=== PATIENT | male | born 1970 | race Caucasian/White ===

== ENCOUNTER 2020-01-29 13:48 | Emergency (ER) | payer BC ==
[~2020-01-29] VITALS: Ht 175.3 cm; Wt 130.6 kg
[2020-01-29] MEDS ORDERED: NACL 0.9% 1,000 ML IV ONE (14:18)
[2020-01-29] MEDS ORDERED: KETOROLAC TROMETHAMINE 30 MG VIAL IVP ONE (14:30)
[2020-01-29 14:54] LABS: BILIRUBIN,URINE NEGATIVE (NEGATIVE); CLARITY/URINE CLEAR (CLEAR); COLOR,URINE YELLOW (YELLOW); GLUCOSE,URINE 1+ (NEGATIVE); KETONES,URINE 3+ (NEGATIVE); LEUKOCYTE ESTERASE ,URINE NEGATIVE (NEGATIVE); NITRITE, URINE NEGATIVE (NEGATIVE); PH,URINE 5.5 (5.0-8.0); PROTEIN URINE TRACE (NEGATIVE)
[2020-01-29 14:58] LABS: BASOPHILS # (AUTO) 0.1 K/uL (0.0-0.2); BASOPHILS % (AUTO) 0.9 % (0.0-2.0); EOSINOPHILS # (AUTO) 0.3 K/uL (0.0-0.4); EOSINOPHILS % (AUTO) 2.8 % (0.0-4.0); HEMATOCRIT 41.1 % (36-54); HEMOGLOBIN 13.7 g/dL (14.0-18.0); LYMPHOCYTES # (AUTO) 1.6 K/uL (1.0-5.5); LYMPHOCYTES % (AUTO) 13.5 % (20.5-51.5); MEAN CORPUSCULAR HEMOGLOBIN 25 pg (27-31); MEAN CORPUSCULAR HGB CONC 33 % (32-36); MEAN CORPUSCULAR VOLUME 75 fL (79.0-98.0); MONOCYTES # (AUTO) 1.1 K/uL (0.0-1.0); MONOCYTES % (AUTO) 9.2 % (1.7-9.3); NEUTROPHILS # (AUTO) 8.5 K/uL (1.8-7.7); NEUTROPHILS % (AUTO) 73.6 % (40.0-70.0); PLATELET COUNT (AUTO) 261 K/uL (130-430); RED BLOOD CELL COUNT(AUTO) 5.48 MIL/uL (4.2-6.2); RED CELL DISTRIBUTION WIDTH 13.4 % (9.0-15.0); WHITE BLOOD COUNT (AUTO) 11.5 K/uL (4.8-10.8)
[2020-01-29 14:59] LABS: CALCIUM 9.1 mg/dL (8.4-11.0); CREATININE 0.79 mg/dL (0.55-1.30)
[2020-01-29 15:02] LABS: BLOOD, URINE TRACE (NEGATIVE)
[2020-01-29 15:04] LABS: RBC,URINE 0-3 /HPF (0-3)
[2020-01-29 15:05] LABS: BACTERIA,URINE FEW /HPF (None Seen); MUCUS,URINE None Seen /LPF (None Seen); WBC,URINE NONE SEEN /HPF (0-3)
[2020-01-29 15:05] LABS: ALBUMIN 2.6 g/dL (3.4-4.8)
[2020-01-29] MEDS ORDERED: POTASSIUM CHLORIDE 20 MEQ TAB.PRT.SR PO ONE (15:30)
[2020-01-29] MEDS ORDERED: cefTRIAXone 1 GM in D5W 50 ML IV ONE (15:45)
[2020-01-29] MEDS ORDERED: cefTRIAXone 1 GM VIAL ONE (16:17)
[2020-01-29 16:32] VITALS: BP_SYST 120
== END 2020-01-29 16:33 | disposition home or self-care (01) ==
LOC: SED 13:48
DX: J18.9 Pneumonia, unspecified organism (principal); R10.9 Unspecified abdominal pain; E87.6 Hypokalemia; E11.29 Type 2 diabetes mellitus with other diabetic kidney complication; N28.9 Disorder of kidney and ureter, unspecified; F17.290 Nicotine dependence, other tobacco product, uncomplicated
CPT/HCPCS: 36415; 36600; 74176; 80053; 81000; 82803; 85025; 96361; 96365; 96375; 99284; J0696; J1885; J7030

== ENCOUNTER 2020-03-25 20:08 | Inpatient (IN) | payer BC, SELFPAY ==
[~2020-03-25] VITALS: Ht 167.6 cm; Wt 116.6 kg
[2020-03-25 20:08] VITALS: BP_SYST 153
--- NOTE | 2020-03-25 20:08 | NUR ---
Patient to ER bed 02 to gown for evaluation. Side rails up. Report given to GERMAN Alcantar
--- NOTE | 2020-03-25 20:09 | NUR ---
ER at bedside examining patient.
--- NOTE | 2020-03-25 20:15 | NUR ---
Pt presents to the ER c/o SOB, chest pain w/ cough x saturday. Pt reports pain has increased and similar to Pneumonia symptoms from january. Pt states feeling like heart is raising. Pt presents w/ tachycardia in the ER 105-115 hr. Denies sick contacts.
--- NOTE | 2020-03-25 20:27 | NUR ---
accucheck - blood sugar 370. MD aware.
--- NOTE | 2020-03-25 20:40 | NUR ---
RT Elian at bedside. Pt to receive breathing tx.
[2020-03-25] MEDS ORDERED: IPRATROPIUM/ALBUTEROL SULFATE 3 ML AMPUL.NEB (DUONEB) INH ONE (20:45)
[2020-03-25] MEDS ORDERED: KETOROLAC TROMETHAMINE 30 MG VIAL IVP ONE (20:45)
--- NOTE | 2020-03-25 20:45 | NUR ---
# 20 gauge angiocath placed to FA. Use of asceptic technique. Opsite placed over site. Blood return noted. Blood for lab drawn from site. Flushed with 10 cc of normal saline. No evidence of infiltration noted. Patient tolerated well.
[2020-03-25 21:35] LABS: BASOPHILS % (AUTO) 0.4 % (0.0-2.0); EOSINOPHILS % (AUTO) 0.1 % (0.0-4.0); HEMATOCRIT 46.2 % (36-54); HEMOGLOBIN 15.2 g/dL (14.0-18.0); LYMPHOCYTES # (AUTO) 1.1 K/uL (1.0-5.5); LYMPHOCYTES % (AUTO) 11.6 % (20.5-51.5); MEAN CORPUSCULAR HEMOGLOBIN 25 pg (27-31); MEAN CORPUSCULAR HGB CONC 33 % (32-36); MEAN CORPUSCULAR VOLUME 75 fL (79.0-98.0); MONOCYTES # (AUTO) 0.7 K/uL (0.0-1.0); MONOCYTES % (AUTO) 7.4 % (1.7-9.3); NEUTROPHILS # (AUTO) 7.6 K/uL (1.8-7.7); NEUTROPHILS % (AUTO) 80.5 % (40.0-70.0); PLATELET COUNT (AUTO) 237 K/uL (130-430); RED BLOOD CELL COUNT(AUTO) 6.19 MIL/uL (4.2-6.2); RED CELL DISTRIBUTION WIDTH 14.9 % (9.0-15.0); WHITE BLOOD COUNT (AUTO) 9.4 K/uL (4.8-10.8)
[2020-03-25 21:39] LABS: ANION GAP 23 (5-15); CALCIUM 9.4 mg/dL (8.4-11.0); CHLORIDE 91 mmol/L (98-107); CREATININE 0.96 mg/dL (0.55-1.30); GLUCOSE 358 mg/dL (70-99); POTASSIUM 3.7 mmol/L (3.5-5.1); SODIUM SERUM 129 mmol/L (136-145); UREA NITROGEN, BLOOD 13 mg/dL (8-21)
--- NOTE | 2020-03-25 21:45 | NUR ---
CRITICAL RESULT EL GARCIA Positive NOTIFIED
[2020-03-25 21:48] LABS: ALANINE AMINOTRANSFERASE 46 U/L (12-78); ALBUMIN 3.4 g/dL (3.4-4.8); ASPARTATE AMINOTRANSFERASE 33 U/L (10-37); TOTAL BILIRUBIN 0.8 mg/dL (0.0-1.0)
[2020-03-25 21:49] LABS: GFR AFRICAN AMERICAN 107 mL/min (>90)
[2020-03-25] MEDS ORDERED: IOHEXOL 350 mgI/mL, 150 ML INFUS..BTL IV ONE (22:24)
--- NOTE | 2020-03-25 22:30 | NUR ---
Pt taken to CT scan via wheelchair w/ Gary.
[2020-03-25] MEDS ORDERED: cefTRIAXone 1 GM IVPB PREMIX 50 ML IV ONE (23:15)
[2020-03-25] MEDS ORDERED: AZITHROMYCIN 500 MG in NS 250 ML IV ONE (23:15)
[2020-03-25] MEDS ORDERED: DEXAMETHASONE SOD PHOSPHATE 4 MG/ML VIAL IVP ONE (23:15)
--- NOTE | 2020-03-25 23:27 | NUR ---
Patient will be admitted to care of Dr. Rodriguez. Admitted to Telemetry Covid unit. Belongings list completed. Complete and up to date summary report printed. SBAR report to be given at bedside with opportunity for questions.
[2020-03-25] MEDS ORDERED: SODIUM BICARBONATE 8.4% JECT 50 MEQ/50 ML SYRINGE IVP ONE (23:30)
[2020-03-25] MEDS ORDERED: INSULIN REGULAR, HUMAN 10 UNITS/0.1 ML INJ IVP ONE (23:30)
[2020-03-25] MEDS ORDERED: NACL 0.9% 2,000 ML IV ONE (23:30)
[2020-03-25] MEDS ORDERED: ACETAMINOPHEN 325 MG TABLET PO PRN (23:45)
[2020-03-25] MEDS: NACL 0.9% 1,000 ML IV SCH (23:45)
[2020-03-25] MEDS ORDERED: MORPHINE 2 MG/ML INJ. SYRINGE IVP PRN (23:45)
[2020-03-25] MEDS: AZITHROMYCIN 500 MG in NS 250 ML IV SCH (23:45)
[2020-03-25] MEDS ORDERED: NALOXONE HCL 0.4 MG/ML AMP (NARCAN) IVP PRN (23:45)
[2020-03-25] MEDS ORDERED: AZITHROMYCIN 500 MG/VIAL (ZITHROMAX) IV ONE (23:58)
[2020-03-26] VITALS (24 sets, daily range): BP systolic 109–134
[2020-03-26] MEDS ORDERED: *LOVENOX 1MG/KG Q12H/PHARMACY XX ONE
[2020-03-26] MEDS: DEXAMETHASONE SOD PHOSPHATE 10 MG/ML VIAL IVP SCH
[2020-03-26] MEDS ORDERED: INSULIN REGULAR, HUMAN 100 UNITS in NS 99 ML IV PRN ×2
--- NOTE | 2020-03-26 00:47 | NUR ---
Admitted to ICU: Rc'vd report using SBAR format from ED RN, all cares assumed.
--- NOTE | 2020-03-26 01:42 | NUR ---
[facility] [employer] DR. MILLIGAN [phone] SPOKE TO ARMAAN
[2020-03-26] MEDS ORDERED: DEXTROSE 50% JECT 50 ML DISP.SYRIN IVP PRN ×2 (02:00)
--- NOTE | 2020-03-26 02:15 | NUR ---
: DR. MILLIGAN called unit, spoke with charge and orders clarified.
[2020-03-26] MEDS ORDERED: cefTRIAXone 1 GM VIAL ONE (02:21)
[2020-03-26] MEDS ORDERED: DEXAMETHASONE SOD PHOSPHATE 10 MG/ML VIAL ONE (02:24)
[2020-03-26] MEDS ORDERED: ENOXAPARIN SODIUM 120 MG/0.8 ML SYRINGE ONE (02:26)
--- NOTE | 2020-03-26 02:30 | NUR ---
BS: BS 317, Insulin Drip started at 3 units per hour per protocol order verified with second nurse.
[2020-03-26] MEDS ORDERED: AZITHROMYCIN 500 MG/VIAL (ZITHROMAX) IV ONE (02:42)
--- NOTE | 2020-03-26 02:45 | NUR ---
IV: 20G placed into Right AC, patient tolerated well, denies pain and or discomfort.
[2020-03-26] MEDS: INSULIN REGULAR, HUMAN 100 UNITS in NS 99 ML IV PRN ×4 (02:48→22:20)
--- NOTE | 2020-03-26 03:17 | NUR ---
Insulin: Insulin order clarified with MD, all orders placed into EMAR by Charge Nurse. patient educated, patient verbalized understanding.
--- NOTE | 2020-03-26 03:19 | NUR ---
Education: Provided verbal education on medications being admisntered to patient, patient verbalized understanding at this time and denies any questions and or concerns. All safety checks in place, bed in lowest locked position and call light in reach.
--- NOTE | 2020-03-26 03:30 | NUR ---
Consults; Consults rc'vd for Dr. Sanchez, and Dr. Callejas. Will call exchange and notify, charge aware.
--- NOTE | 2020-03-26 03:54 | NUR ---
BS: BS 321, patient remains on 3 units/hr at this time. Patient in bed with eyes closed in no apparent distress.
--- NOTE | 2020-03-26 05:01 | NUR ---
Nsg Rounds: Patient in bed with eyes open, friendly and cooperative to speak with. Denies pain and or discomfort, all safety measures in place and call light in reach. Patient demonstrated proper use of call light. patient requested snack, [place] sandwich given, fluids offered. Monitoring at this time.
--- NOTE | 2020-03-26 05:25 | NUR ---
Labs: Labs being drawn at bedside by Exhaust Machine Operator, patient tolerated well.
--- NOTE | 2020-03-26 06:10 | NUR ---
Nsg Rounds: Patient asleep, resting comfortably no acute distress noted. All safety checks in place, call light in reach, bed in lowest position.
--- NOTE | 2020-03-26 06:16 | NUR ---
Belongings: 1 pair of blk sandals, 1 pair blk shorts, 1 blk shirt, 1 pair boxer briefs blk, 1 set of car keys, ID card, Ins Card, 2 credit debit cards. All items at bedside with patient.
[2020-03-26 06:23] LABS: BASOPHILS % (AUTO) 0.2 % (0.0-2.0); HEMOGLOBIN 13.8 g/dL (14.0-18.0); LYMPHOCYTES # (AUTO) 0.5 K/uL (1.0-5.5); LYMPHOCYTES % (AUTO) 7.1 % (20.5-51.5); MEAN CORPUSCULAR HEMOGLOBIN 25 pg (27-31); MEAN CORPUSCULAR HGB CONC 34 % (32-36); MEAN CORPUSCULAR VOLUME 74 fL (79.0-98.0); MONOCYTES # (AUTO) 0.3 K/uL (0.0-1.0); MONOCYTES % (AUTO) 4.4 % (1.7-9.3); NEUTROPHILS # (AUTO) 6.8 K/uL (1.8-7.7); NEUTROPHILS % (AUTO) 88.3 % (40.0-70.0); PLATELET COUNT (AUTO) 216 K/uL (130-430); RED BLOOD CELL COUNT(AUTO) 5.53 MIL/uL (4.2-6.2); WHITE BLOOD COUNT (AUTO) 7.7 K/uL (4.8-10.8)
--- NOTE | 2020-03-26 06:45 | NUR ---
Intubation: Patient stated, "I want to be intubated if I need it so I can breathe", patient educated on intubation and respiratory compromise. Patient verbalized understanding, information given to Charge nurse.
--- NOTE | 2020-03-26 06:47 | NUR ---
Closing Note: Report given to AM nurse using SBAR format. All safety checks remain in place, patient stable in no acute distress and or discomfort. Bed in lowest locked position with call light in reach.
[2020-03-26 07:06] LABS: ALBUMIN 2.8 g/dL (3.4-4.8); CALCIUM 8.7 mg/dL (8.4-11.0); CREATININE 0.73 mg/dL (0.55-1.30); POTASSIUM 3.5 mmol/L (3.5-5.1); TOTAL BILIRUBIN 0.5 mg/dL (0.0-1.0)
--- NOTE | 2020-03-26 07:20 | NUR ---
Opening Note Patient report received via SBAR from endorsing RN
[2020-03-26] MEDS: NACL 0.9% 1,000 ML IV SCH (08:29)
--- NOTE | 2020-03-26 08:30 | NUR ---
Nursing Note Patient provided education about self proning, patient stated, "I can't lay on my stomach, its to hard for me to breathe." Patient educated about Incentive Spirometer use, patient verbalized understanding and demonstrated use.
--- NOTE | 2020-03-26 08:30 | NUR ---
Witnessed Insulin drip infusing at 1 unit/hr on the pump.
--- NOTE | 2020-03-26 09:59 | NUR ---
Nutrition Update Milton Scale 16 noted. Pt admitted for COVID, pneumonia. Diet: [facility] BMI: 41.5 kg/m2 RD to follow per nutrition care standards.
--- NOTE | 2020-03-26 10:00 | NUR ---
Witnessed Insulin drip infusing at 4 unit/hr on the pump.
--- NOTE | 2020-03-26 10:05 | NUR ---
ROUND Dr. Callejas in to see patient, new orders entered
[2020-03-26] MEDS ORDERED: ASCORBIC ACID 500 MG TABLET PO ONE (10:15)
[2020-03-26] MEDS ORDERED: CHOLECALCIFEROL (VITAMIN D3) 2,000 UNIT TABLET PO ONE (10:15)
[2020-03-26] MEDS: ENOXAPARIN SODIUM 120 MG/0.8 ML SYRINGE SUBCUT SCH ×2 (11:50→20:44)
--- NOTE | 2020-03-26 11:55 | NUR ---
ROUND Dr. Boyd in to see patient, new orders entered
[2020-03-26] MEDS ORDERED: K PHOS 30 MM in NS 250 ML IV ONE (12:00)
--- NOTE | 2020-03-26 12:00 | NUR ---
Witnessed Insulin drip infusing at 2 unit/hr on the pump.
--- NOTE | 2020-03-26 14:20 | NUR ---
Dietitian Recommendations * Recommend [facility], 100 gm protein diet LP, RD Please refer to Nutrition Assessment for details. Addendum: 03/26/20 at [address] Amended: Links added.
--- NOTE | 2020-03-26 15:00 | NUR ---
Nursing Note Patient given CHG bath, patient repositioned and encouraged to use Incentive Spirometer
--- NOTE | 2020-03-26 16:08 | NUR ---
Nursing Note Patient's family brought cellphone slat basket maker machine and battery pack. Placed at patient's bedside Addendum: 03/26/20 at 1610 by Jairo Gannon RN Amended: Links added.
--- NOTE | 2020-03-26 18:47 | NUR ---
MD CALL Dr. Sanchez informed about patient condition, new orders entered
--- NOTE | 2020-03-26 19:17 | NUR ---
Closing Note Patient report given to nightshift RN via SBAR
--- NOTE | 2020-03-26 20:00 | NUR ---
INITIAL NOTES PATIENT VITAL IS STABLE AND LAYING IN BED. NO S/S OF RESPIRATORY DISTRESS NOTED. CALL LIGHT IN REACH. PATIENT SUCCESSFULLY DEMONSTRATES USAGE OF CALL LIGHT. PATIENT IS ON 2L NC. PLAN OF CARE IS DISCUSSED WITH PATIENT. FALL, SAFETY, ASPIRATION, COVID, AND RESPIRATORY PRECAUTIONS WILL BE IN PLACE THROUGHOUT THE SHIFT. PLAN OF CARE IS DISCUSSED WITH PATIENT. BED IS LOCK AND AT THE LOWEST POSITION. PATIENT IS ON INSULIN @2 ML/HR. INSULIN PROTOCOL WILL BE IN PLACE THROUGHOUT THE SHIFT.
[2020-03-26 20:40] LABS: ALBUMIN 2.6 g/dL (3.4-4.8); CALCIUM 8.9 mg/dL (8.4-11.0); CREATININE 0.76 mg/dL (0.55-1.30); PHOSPHORUS 2.8 mg/dL (2.7-4.5); POTASSIUM 3.6 mmol/L (3.5-5.1); TOTAL BILIRUBIN 0.5 mg/dL (0.0-1.0)
--- NOTE | 2020-03-26 21:15 | NUR ---
STARTED FFP PATIENT IS TOLERATING WELL. NO S/S OF RESPIRATORY DISTRESS NOTED. CALL LIGHT IN REACH.
--- NOTE | 2020-03-26 22:20 | NUR ---
Norm Dawkins RN titrate insulin drip to 1 unit/hr on the pump.
[2020-03-27] VITALS (23 sets, daily range): BP systolic 108–136
[2020-03-27] MEDS: DEXAMETHASONE SOD PHOSPHATE 10 MG/ML VIAL IVP SCH (00:46)
[2020-03-27] MEDS: AZITHROMYCIN 500 MG in NS 250 ML IV SCH (00:46)
--- NOTE | 2020-03-27 01:18 | NUR ---
daylight saving/glucose check glucose check taken now due to day light savings. will continue to take q2 hrs from now.
[2020-03-27 02:15] LABS: BASOPHILS % (AUTO) 0.2 % (0.0-2.0); HEMATOCRIT 39.6 % (36-54); LYMPHOCYTES # (AUTO) 0.6 K/uL (1.0-5.5); LYMPHOCYTES % (AUTO) 6.8 % (20.5-51.5); MEAN CORPUSCULAR HEMOGLOBIN 24 pg (27-31); MEAN CORPUSCULAR HGB CONC 33 % (32-36); MEAN CORPUSCULAR VOLUME 74 fL (79.0-98.0); MONOCYTES # (AUTO) 0.6 K/uL (0.0-1.0); MONOCYTES % (AUTO) 7.5 % (1.7-9.3); NEUTROPHILS # (AUTO) 7.3 K/uL (1.8-7.7); NEUTROPHILS % (AUTO) 85.5 % (40.0-70.0); PLATELET COUNT (AUTO) 192 K/uL (130-430); RED BLOOD CELL COUNT(AUTO) 5.34 MIL/uL (4.2-6.2); RED CELL DISTRIBUTION WIDTH 15.2 % (9.0-15.0); WHITE BLOOD COUNT (AUTO) 8.6 K/uL (4.8-10.8)
[2020-03-27 02:34] LABS: ALBUMIN 2.5 g/dL (3.4-4.8); BILIRUBIN,DIRECT 0.2 mg/dL (0.0-0.3); CALCIUM 8.6 mg/dL (8.4-11.0); CREATININE 0.65 mg/dL (0.55-1.30); PHOSPHORUS 2.1 mg/dL (2.7-4.5); POTASSIUM 3.3 mmol/L (3.5-5.1); TOTAL BILIRUBIN 0.4 mg/dL (0.0-1.0)
--- NOTE | 2020-03-27 03:00 | NUR ---
Norm Dawkins RN titrate the insulin drip to 2 units/hr.
[2020-03-27] MEDS: INSULIN REGULAR, HUMAN 100 UNITS in NS 99 ML IV PRN ×10 (03:09→17:44)
[2020-03-27] MEDS: NACL 0.9% 1,000 ML IV SCH (05:31)
--- NOTE | 2020-03-27 07:20 | NUR ---
Witnessed: Witnessed RN titrate insulin to 3 units
--- NOTE | 2020-03-27 07:23 | NUR ---
CLOSING NOTES SBAR REPORT ENDORSED TO AM NURSE.
[2020-03-27] MEDS: CHOLECALCIFEROL (VITAMIN D3) 2,000 UNIT TABLET PO SCH (07:53)
[2020-03-27] MEDS: ASCORBIC ACID 500 MG TABLET PO SCH (07:53)
[2020-03-27] MEDS: ENOXAPARIN SODIUM 120 MG/0.8 ML SYRINGE SUBCUT SCH ×2 (07:54→21:17)
--- NOTE | 2020-03-27 09:16 | NUR ---
Blood glucose 324 - per insulin gtt protocol - continue on 3units.
[2020-03-27 09:23] LABS: ALBUMIN 2.5 g/dL (3.4-4.8); CALCIUM 8.8 mg/dL (8.4-11.0); CREATININE 0.65 mg/dL (0.55-1.30); PHOSPHORUS 2.4 mg/dL (2.7-4.5); POTASSIUM 3.1 mmol/L (3.5-5.1); TOTAL BILIRUBIN 0.4 mg/dL (0.0-1.0)
--- NOTE | 2020-03-27 09:58 | NUR ---
Dr. Boyd rounds per [place] to increase insulin drip to 5units then recheck blood glucose if still high blood glucose go up to 7units - if blood glucose less than 200 keep same insulin drip rate. Will follow up.
[2020-03-27] MEDS ORDERED: K PHOS 30 MM in NS 250 ML IV ONE (10:15)
--- NOTE | 2020-03-27 11:03 | NUR ---
Blood glucose 337 - - titrated drip to 5units per Dr. Boyd - due to blood glucose still being in the three hundred range. Addendum: 03/27/20 at 1803 by Ochoa Holguin RN Co-signed by Jey HENRIQUEZ
[2020-03-27 12:56] LABS: C-REACTIVE PROTEIN QUANT 4.4 mg/dL (0-0.5)
--- NOTE | 2020-03-27 13:00 | NUR ---
Blood glucose 270 - titrated drip to 2units at this time. Addendum: 03/27/20 at 1803 by Ochoa Holguin RN Co-signed by Jey HENRIQUEZ
--- NOTE | 2020-03-27 15:26 | NUR ---
Blood glucose 255 - insulin drip continues at 2units at this time.
--- NOTE | 2020-03-27 17:45 | NUR ---
Blood glucose 239 - titrated insulin drip to 1unit at this time. Addendum: 03/27/20 at 1804 by Ochoa Holguin RN Co-signed by Silke PORTER.
--- NOTE | 2020-03-27 18:36 | NUR ---
Closing note patient resting in bed, no signs of distress, on 3L nasal cannula, all needs met, will endorse report to NOC shift nurse, bed in lowest position, two side rails up, call light within reach, fall, isolation, aspiration precautions in place.
--- NOTE | 2020-03-27 19:15 | NUR ---
change of shift.pt.presents isolation status.droplet;covid19+.pt.presents o2 therapy;o2 therapy via nasal cannulae@ the rate;2-3l/min.o2-sat%=93%.pt.presents iv access x2;location;rt.antecubital/rt.wrist.iv fluids infusing rt.antecubital. insulin drip infusing;rt.wrist.insulin drip infusing@the rate;1ml/hr=1-unit/hr.blood glucose to be assessed q-2hrs.general status stable.respiratory status stable;unlabored.pt.capable to reposition self.call light/telephone w/in access of the pt.
--- NOTE | 2020-03-27 20:00 | NUR ---
pt.assessed.v/s assessed values w/in normal limits.o2-sat%=92%.repiratory status slight labored.no suctioning required.no c/o pain,nausea.insulin drip infusing.via lt.forearm iv access.i have assessed the blood glucose:297mg/dl.per insulin drip protocol.i have increased the insulin drip rate;2ml/hr=2units/hr.no c/o pain,nausea.i have apprised the pt.that snacks/beverages are available w/in the shift. no requests posited@this hour.general status stable. pt.capable to reposition self/ambulate.call light/telephone w/in access of the pt.
--- NOTE | 2020-03-27 20:22 | NUR ---
INSULIN DRIP I carly Medrano RN increase insulin drip to 2 units/HR.
--- NOTE | 2020-03-27 21:00 | NUR ---
2100pmedications administered.lovenox:120mg sq administered.no requests posited @this hour.02-sat%=93%.
[2020-03-27] MEDS ORDERED: ENOXAPARIN SODIUM 40 MG/0.4 ML SYRINGE ONE (21:30)
[2020-03-27] MEDS ORDERED: ENOXAPARIN SODIUM 100 MG/ML SYRINGE ONE (21:31)
--- NOTE | 2020-03-27 22:00 | NUR ---
pt.assessed.v/s assessed values w/in normal limits.o2-sat%=93%.i have re-iterated to the pt.that has ordered the pt to assume the prone position.pt.stated he will.i have assessed the blood glucose;value;254mg/dl.per insulin drip protocol.no change to the rate;maintain the rate current;2-ml/hr=2-units/hr.no c/o pain,nausea,no request posited@this hour.general status stable.respiratory status stable.pt.capable to reposition self.call light/telephone w/in access of the pt.
[2020-03-28] VITALS (24 sets, daily range): BP systolic 100–132
--- NOTE | 2020-03-28 | NUR ---
pt.assessed.v/s assessed values w/in normal limits.respiratory status stable:o2-sat%=93%.i re-iterated to the pt.that has ordered the pt.to assume the prone position.pt.stated he will.i have assessed the blood glucose;value;241mg/dl.per the insulin drip protocol no change in the rate of the insulin drip.i have administered the abx;zithromax;/rocephin.via peripheral line;located rt.antecubital.no c/o pain,nausea.pt.requested ice water.i have provided the ice water.general status stable.pt.capable to reposition self.call light/telephone w/in reach of the pt.
[2020-03-28] MEDS: AZITHROMYCIN 500 MG in NS 250 ML IV SCH ×2 (00:15→23:39)
[2020-03-28] MEDS: DEXAMETHASONE SOD PHOSPHATE 10 MG/ML VIAL IVP SCH ×2 (00:18→23:42)
[2020-03-28] MEDS: NACL 0.9% 1,000 ML IV SCH ×2 (01:14→22:31)
--- NOTE | 2020-03-28 02:00 | NUR ---
INSULIN DRIP I carly Medrano RN increase the insulin drip rate to 2units/HR.
--- NOTE | 2020-03-28 02:00 | NUR ---
pt.assessed.v/s assessed values note b/p values low status@this hour.i have assessed the blood glucose value;267mg/dl.i have increased the insulin drip rate;2ml/hr=2units/hr.o2-sat%=93%.iv access intact;patent iv influids infusing.general status stable.respiratory status stable.call light/telephone w/in access of the pt.
--- NOTE | 2020-03-28 04:00 | NUR ---
PT.ASSEsseD.V/S ASsEssed VALUES W/IN NORMaL LiMITS.o2-sat%=93%.respiratory status stable.i have assessed the blood glucose;value;288mg/dl.per insulin drip protocol no increase to the insulin drip rate.i have attended to the urinal;measured placed w/in access of the pt.no c/o pain,nausea.iv fluids infusing.general status stable.pt.capable to reposition self.call light/telephone w/in access of the pt.
--- NOTE | 2020-03-28 06:00 | NUR ---
INSULIN DRIP I carly Medrano RN increase the insulin drip rate to 4units/HR.
--- NOTE | 2020-03-28 06:00 | NUR ---
pt.assessed.v/s assessed values w/in normal limits.o2-sat%=96%respiratory status stable.i have attended to the urinal; measured placed w/in access of the pt.no c/o pain,nausea.no requests posited@this hour.pt.capable to reposition self. iv access intact patent iv fluids infusing.insulin drip infusing.i have assessed the blood glucose value;375mg/dl.per insulin protocol i have increased the insulin rate to 4ml/hr=4u/hr.call light/telephone w/in access of the pt.
[2020-03-28 06:06] LABS: BASOPHILS % (AUTO) 0.5 % (0.0-2.0); EOSINOPHILS % (AUTO) 0.2 % (0.0-4.0); HEMATOCRIT 38.6 % (36-54); HEMOGLOBIN 12.8 g/dL (14.0-18.0); LYMPHOCYTES # (AUTO) 0.6 K/uL (1.0-5.5); LYMPHOCYTES % (AUTO) 12.5 % (20.5-51.5); MEAN CORPUSCULAR HEMOGLOBIN 24 pg (27-31); MEAN CORPUSCULAR HGB CONC 33 % (32-36); MEAN CORPUSCULAR VOLUME 74 fL (79.0-98.0); MONOCYTES # (AUTO) 0.3 K/uL (0.0-1.0); NEUTROPHILS % (AUTO) 80.8 % (40.0-70.0); PLATELET COUNT (AUTO) 204 K/uL (130-430); RED BLOOD CELL COUNT(AUTO) 5.24 MIL/uL (4.2-6.2); WHITE BLOOD COUNT (AUTO) 4.9 K/uL (4.8-10.8)
[2020-03-28 06:40] LABS: ALBUMIN 2.3 g/dL (3.4-4.8); BILIRUBIN,DIRECT 0.2 mg/dL (0.0-0.3); CALCIUM 8.3 mg/dL (8.4-11.0); CREATININE 0.49 mg/dL (0.55-1.30); POTASSIUM 3.1 mmol/L (3.5-5.1); TOTAL BILIRUBIN 0.4 mg/dL (0.0-1.0)
--- NOTE | 2020-03-28 06:49 | NUR ---
INSULIN DRIP I carly Medrano RN increase the insulin drip rate to 2units/HR.
--- NOTE | 2020-03-28 07:35 | NUR ---
Opening Note Received bedside report from endorsing RN for continuation of care. Received patient AAOx4, patient denies any pain or SOB at this time. No signs or symptoms of acute distress noted. Bed locked in lowest position, bed alarm on, and call light within reach. Education given on use of call light and patient verbalized understanding. Fall and safety precautions in place.
[2020-03-28] MEDS: ASCORBIC ACID 500 MG TABLET PO SCH (08:16)
[2020-03-28] MEDS: CHOLECALCIFEROL (VITAMIN D3) 2,000 UNIT TABLET PO SCH (08:17)
--- NOTE | 2020-03-28 08:30 | NUR ---
Witnessed insulin drip decreased to 2 units/hr.
--- NOTE | 2020-03-28 10:10 | NUR ---
Dr. Rodriguez in to see patient. No new orders.
--- NOTE | 2020-03-28 10:30 | NUR ---
Spoke with patient's Maday on the phone regarding patient status and plan of care. All questions answered and education provided.
[2020-03-28] MEDS: ENOXAPARIN SODIUM 120 MG/0.8 ML SYRINGE SUBCUT SCH ×2 (10:34→22:38)
--- NOTE | 2020-03-28 10:43 | NUR ---
Witnessed insulin drip increased to 3 units/hr.
[2020-03-28 11:13] LABS: C-REACTIVE PROTEIN QUANT 2.4 mg/dL (0-0.5)
--- NOTE | 2020-03-28 12:10 | NUR ---
Dr. Angela in to see patient. New orders received.
--- NOTE | 2020-03-28 13:06 | NUR ---
Dr. Rehman at bedside examining patient. New orders received.
[2020-03-28] MEDS ORDERED: POTASSIUM CHLORIDE 20 MEQ TAB.PRT.SR PO ONE ×2 (13:15→21:45)
--- NOTE | 2020-03-28 13:35 | NUR ---
Witnessed insulin drip decreased to 2 units/hr.
[2020-03-28] MEDS ORDERED: POTASSIUM CHLORIDE 20 MEQ TAB.PRT.SR ONE (13:40)
[2020-03-28] MEDS ORDERED: DEXTROSE 50% JECT 50 ML DISP.SYRIN IVP PRN (18:30)
--- NOTE | 2020-03-28 19:26 | NUR ---
Closing Note Endorsed bedside report to oncoming RN using SBAR approach for continuation of care.
--- NOTE | 2020-03-28 19:30 | NUR ---
RECEIVED REPORT AT BEDSIDE PATIENT IS AWAKE ALERT ORIENTED FOLLOWING COMMAND .PATIENT ON 2 LITERS NASAL CANNULA AND SATURATING 91-92%.PATIENT IS IN SINUS RYTHM.RESPIRATION IS REGULAR HAS MILD SHORT OF BREATHE AND HAS OCASSIONAL DRY COUGH.PATIENT DENIES ANY PAIN AT THIS TIME.PATIENT IS USING URINAL AND DRINKS WATER W/O ANY PROBLEM.PATIENT WITH IV INFUSING THRU HIS PERIPHERAL LINE WITH NORMAL SALINE AT 50CC/HR.IV SITE PATENT.
--- NOTE | 2020-03-28 20:00 | NUR ---
LAB CALLED FOR CRITICAL POTASSIUM LEVEL 2.9//CALLED DR MILLIGAN WHO IS BI ARCHITECT FOR DR KAMARA AND ORDERS NOTED.
[2020-03-28 20:19] LABS: CALCIUM 8.3 mg/dL (8.4-11.0); CREATININE 0.53 mg/dL (0.55-1.30)
[2020-03-28 21:19] LABS: POTASSIUM 2.9 mmol/L (3.5-5.1)
--- NOTE | 2020-03-28 21:30 | NUR ---
POT ALANER 20 MERQ ADMINISTERED IVPB,THEN POT 40 MEQ GIVEN ORALLY
[2020-03-28] MEDS ORDERED: KCL 20 mEq in 100 mL (PREMIX) 100 ML IV ONE (21:45)
[2020-03-29] VITALS (17 sets, daily range): BP systolic 97–130
--- NOTE | 2020-03-29 | NUR ---
PATIENT HAS BEEN VOIDING LARGE AMOUNT OF URINE,HAS BEEN STABLE THROUHOUT THE NIGHT.
[2020-03-29] MEDS: INSULIN REGULAR, HUMAN 100 UNITS/ML, 10 ML VIAL (humuLIN R) SUBCUT PRN ×4 (00:01→18:51)
--- NOTE | 2020-03-29 00:01 | NUR ---
BLOOD SUGAR BY ACCUCHECK IS 261 CIVERED WITH 6 UNITS OF REGULAR INSULIN SUBCUTANOUSLY
[2020-03-29] MEDS: AZITHROMYCIN 500 MG in NS 250 ML IV SCH (01:22)
--- NOTE | 2020-03-29 06:00 | NUR ---
blood sugar this morning is 316 covered with 8 units of regular insulin patient stated he feels a lot better this morning.
[2020-03-29 07:02] LABS: ALBUMIN 2.4 g/dL (3.4-4.8); CREATININE 0.53 mg/dL (0.55-1.30); POTASSIUM 3.5 mmol/L (3.5-5.1); TOTAL BILIRUBIN 0.4 mg/dL (0.0-1.0)
--- NOTE | 2020-03-29 07:15 | NUR ---
Opening note Received report from BELIA PORTER.
[2020-03-29] MEDS: ASCORBIC ACID 500 MG TABLET PO SCH (07:58)
[2020-03-29] MEDS: ENOXAPARIN SODIUM 120 MG/0.8 ML SYRINGE SUBCUT SCH ×2 (07:58→21:30)
[2020-03-29] MEDS: CHOLECALCIFEROL (VITAMIN D3) 2,000 UNIT TABLET PO SCH (07:58)
--- NOTE | 2020-03-29 08:00 | NUR ---
RN Rounds Pt sitting up in bed eating breakfast, NAD.
--- NOTE | 2020-03-29 08:20 | NUR ---
MD Rounds Dr. Rodriguez at bedside.
--- NOTE | 2020-03-29 09:10 | NUR ---
MD Rounds Dr. Rehman at bedside. Per MD curiel for transfer to telemetry.
--- NOTE | 2020-03-29 16:20 | NUR ---
Transfer Pt transferred to room 122 on ekg monitor, on O2 2L/ NC with RN via WC. Pt care endorsed to Summor RN. Pt in NAD, bed locked in lowest position, call light in reach, side rails up x2.
--- NOTE | 2020-03-29 16:37 | NUR ---
Opening Note received SBAR report from endorsing RN, patient resting in bed, A&O x4, respirations even and unlabored on 2L nasal cannula, no acute distress noted, educated patient on use of call light and asked to call for assistance, patient verbalized understanding, call light in reach, bed in low and locked position, bed alarm on.
--- NOTE | 2020-03-29 17:50 | NUR ---
Bedside Commode patient requesting to use bedside commode, assisted patient to use bedside commode, patient voided x1, BM x1, patient cleaned self, patient transferred back to bed, patient resting in bed, respirations even and unlabored on 2L nasal cannula, no acute distress noted.
[2020-03-29] MEDS: NACL 0.9% 1,000 ML IV SCH (17:58)
--- NOTE | 2020-03-29 19:06 | NUR ---
Closing Note SBAR report given to receiving RN, patient resting in bed, respirations even and unlabored on 2L nasal cannula, no acute distress noted, patient denies any pain, educated patient on use of call light and asked to call for assistance, patient verbalized understanding, call light in reach, bed in low and locked position, bed alarm on, care endorsed to sheet turner RN.
--- NOTE | 2020-03-29 19:30 | NUR ---
OPENING NOTES RECEIVED REPORT FROM DAY SHIFT RN. PT RESTING IN BED, ALERT & ORIENTED X4. BREATHING EVEN AND UNLABORED TO O2 VIA NC AT 2L. IV ON RIGHT HAND 20G, RIGHT AC 20G, INTACT. IVF RUNNING ORDERED RATE. NO SIGNS OF INFILTRATION NOTED. PT MICHAEL ANY PAIN AT THIS TIME. CALL LIGHT WITHIN REACH. SIDE RAILS UP X3. BED LOCKED IN LOW. SAFETY, FALL, AND ISOLATION PRECAUTIONS ARE IN PLACE. WILL CONTINUE TO MONITOR.
[2020-03-29] MEDS: INSULIN GLARGINE 100 UNITS/ML 10 ML VIAL SUBCUT SCH (21:30)
[2020-03-30] VITALS: BP_SYST 119
[2020-03-30] MEDS: INSULIN REGULAR, HUMAN 100 UNITS/ML, 10 ML VIAL (humuLIN R) SUBCUT PRN ×5 (00:31→21:28)
[2020-03-30] MEDS: DEXAMETHASONE SOD PHOSPHATE 10 MG/ML VIAL IVP SCH ×2 (00:31→23:37)
[2020-03-30] MEDS: AZITHROMYCIN 500 MG in NS 250 ML IV SCH (01:22)
[2020-03-30 07:37] LABS: ALBUMIN 2.4 g/dL (3.4-4.8); BILIRUBIN,DIRECT 0.2 mg/dL (0.0-0.3); CALCIUM 8.2 mg/dL (8.4-11.0); CREATININE 0.57 mg/dL (0.55-1.30); POTASSIUM 3.5 mmol/L (3.5-5.1); TOTAL BILIRUBIN 0.4 mg/dL (0.0-1.0)
[2020-03-30 07:58] VITALS: BP_SYST 128
--- NOTE | 2020-03-30 08:00 | NUR ---
INITIAL NOTE: PATIENT IS ALERT, ORIENT ED X4, DENIES ANY PAIN OR DISCOMFORT, ON OXYGEN 3 L/M VIA NC. IVF WITH NORMAL SALINE AT 50 ML/HR. INFUSING WELL VIA RIGHT FOREARM IV SITE.
[2020-03-30] MEDS: CHOLECALCIFEROL (VITAMIN D3) 2,000 UNIT TABLET PO SCH (08:03)
[2020-03-30] MEDS: ASCORBIC ACID 500 MG TABLET PO SCH (08:03)
[2020-03-30] MEDS: ENOXAPARIN SODIUM 120 MG/0.8 ML SYRINGE SUBCUT SCH ×2 (08:04→21:27)
[2020-03-30 09:06] LABS: C-REACTIVE PROTEIN QUANT 3.6 mg/dL (0-0.5)
--- NOTE | 2020-03-30 10:00 | NUR ---
ID ROUND: DR. SALCIDO HAS MAD ROUND WITH NEW LAB ORDER.
[2020-03-30 12:38] VITALS: BP_SYST 132
[2020-03-30] MEDS: NACL 0.9% 1,000 ML IV SCH (14:11)
[2020-03-30 16:35] VITALS: BP_SYST 123
--- NOTE | 2020-03-30 18:30 | NUR ---
CLOSING NOTE: PATIENT IS STABLE , NO ACUTE DISTRESS, ON THE SAME IVF. TOLERATES DIET WELL.
--- NOTE | 2020-03-30 19:16 | NUR ---
OPENING NOTE PATIENT AWAKE, WATCHING TV. AOX4. NO SIGNS OF RESPIRATORY DISTRESS NOTED. DENIES PAIN AND DISCOMFORT. ON 3L OF OXYGEN VIA NASAL CANULA, TOLERATING WELL, O2 SATURATION OF 93%. DENIES SOB. IV INFILTRATED AT THIS TIME, WILL RE INSERT NEW IV ACCESS. BED LOCKED AND IN LOWEST POSITION. CALL LIGHT WITHIN REACH. PATIENT WAS EDUCATED TO USE CALL LIGHT WHEN ASSISTANCE IS NEEDED. PATIENT ABLE TO VERBALIZED UNDERSTANDING. SAFETY AND ISOLATION PRECAUTIONS IN PLACE. WILL CONTINUE TO MONITOR PATIENT
[2020-03-30 20:00] VITALS: BP_SYST 120
[2020-03-30] MEDS: INSULIN GLARGINE 100 UNITS/ML 10 ML VIAL SUBCUT SCH (21:26)
--- NOTE | 2020-03-30 21:26 | NUR ---
MED PASS /BS 285 DUE MEDICATION GIVEN AT THIS TIME. BS CHECKED WAS 285. LANTUS 10 UNITS AND 6 UNITS OF REGULAR INSULIN WAS GIVEN AT THIS TIME. PATIENT WAS EDUCATED ON MEDICATION THAT WAS GIVEN FOR ITS PURPOSE, SIDE EFFECT AND BENEFITS. PATIENT ABLE TO VERBALIZED UNDERSTANDING. CALL LIGHT WITHIN REACH. SAFETY AND ISOLATION PRECAUTIONS IN PLACE. WILL CONTINUE TO MONITOR PATIENT.
--- NOTE | 2020-03-30 23:46 | NUR ---
VITAL SIGNS VITAL SIGNS TAKEN AND WILL BE RECORDED. PATIENT AWAKE, NO SIGNS OF RESPIRATORY DISTRESS AND DISCOMFORT NOTED. ON 2L OF OXYGEN VIA NASAL CANULA, TOLERATING WELL. 02 SATURATION OF 99%. PATIENT WAS OFFERED TO EAT AND DRINK WATER, PATIENT REFUSED. WILL CONTINUE TO ENCOURAGE. BED LOCKED AND IN LOWEST POSITION. SAFETY PRECAUTIONS IN PLACE. WILL CONTINUE TO MONITOR PATIENT. Addendum: 03/31/20 at 0213 by Latonya Clement RN THIS NOTE WAS FOR ANOTHER PATIENT.
--- NOTE | 2020-03-30 23:46 | NUR ---
VITAL SIGNS/ NEW IV SITE VITAL SIGNS TAKEN AND WILL BE RECORDED. PATIENT AWAKE, NO SIGNS OF RESPIRATORY DISTRESS AND DISCOMFORT NOTED. DENIES PAIN AND DISCOMFORT. ON 3L OF OXYGEN VIA NASAL CANULA, TOLERATING WELL. 02 SATURATION OF 94%. NEW IV INSERTED ON THE RIGHT FOREARM #22g, PATIENT TOLERATED WELL. CALL LIGHT WITHIN REACH. BED LOCKED AND IN LOWEST POSITION. SAFETY PRECAUTIONS IN PLACE. WILL CONTINUE TO MONITOR PATIENT.
[2020-03-31] VITALS: BP_SYST 119
--- NOTE | 2020-03-31 02:20 | NUR ---
RN ROUNDS PATIENT ASLEEP AT THIS TIME. PATIENT HAS NO SIGNS OF RESPIRATORY DISTRESS AND DISCOMFORT NOTED. BREATHING EVEN AND UNLABORED. ON 3L OF OXYGEN TOLERATING WELL. NO SOB NOTED. IVF INFUSING WELL. CALL LIGHT WITHIN REACH. SAFETY PRECAUTIONS IN PLACE. WILL CONTINUE TO MONITOR PATIENT.
[2020-03-31] MEDS: INSULIN REGULAR, HUMAN 100 UNITS/ML, 10 ML VIAL (humuLIN R) SUBCUT PRN ×4 (06:25→21:49)
--- NOTE | 2020-03-31 06:36 | NUR ---
CLOSING NOTE/OY=000 PATIENT REFUSED TO TAKE DUE MEDICATION, PATIENT SHAKING HIS HEAD AND WON'T OPEN HIS EYES AND MOUTH WHEN OFFERED CRUSHED MEDICATION, PATIENT WAS EDUCATED ON PURPOSE AND BENEFITS OF MEDICATION THAT WAS GIVEN, PATIENT UNABLE TO VERBALIZED UNDERSTANDING, PATIENT IS CONFUSED AND STILL REFUSING MEDS. WILL CONTINUE TO ENCOURAGE AND FEED PATIENT. BS OCLIDGH=417. NO COVERAGE NEEDED AT THIS TIME. PATIENT HAS NO SIGNS OF RESPIRATORY DISTRESS AND NOTED. BREATHING EVEN AND UNLABORED. ON 2L OF OXYGEN VIA NASAL CANULA, TOLERATING WELL. NO SOB NOTED. LEFT UPPER MIDLINE, DRESSING CLEAN AND DRY, PATENCY NOTED. AYLA CATHETER DRESSING CLEAN AND DRY. BED LOCKED AND IN LOWEST POSITION. BED ALARM ON. ALL NEEDS MET THROUGHOUT THE SHIFT. WILL CONTINUE TO MONITOR PATIENT UNTIL ENDORSE TO ONCOMING SHIFT NURSE FOR CONTINUITY OF CARE. Addendum: 03/31/20 at 0639 by Latonya Clement RN THIS CLOSING NOTE IS NOT FOR THIS PATIENT.
--- NOTE | 2020-03-31 06:39 | NUR ---
CLOSING NOTE/ ZV=754 PATIENT AWAKE, NO SIGNS OF RESPIRATORY DISTRESS NOTED. DENIES PAIN AND DISCOMFORT. ON 3L OF OXYGEN VIA NASAL CANULA, TOLERATING WELL. IVF INFUSING WELL, PATENCY NOTED. BS CHECKED= 344. 8 UNITS OF REGULAR INSULIN WAS GIVEN, PATIENT WAS EDUCATED ON PURPOSE, SIDE EFFECT AND BENEFITS OF MEDICATION THAT WAS GIVEN. PATIENT ABLE TO VERBALIZED UNDERSTANDING. CALL LIGHT WITHIN REACH. BED LOCKED AND IN LOWEST POSITION. SAFETY AND ISOLATION PRECAUTIONS IN PLACE. ALL NEEDS MET THROUGHOUT THE SHIFT. WILL CONTINUE TO MONITOR PATIENT UNTIL ENDORSE TO ONCOMING SHIFT NURSE FOR CONTINUITY OF CARE.
--- NOTE | 2020-03-31 07:45 | NUR ---
OPENING NOTE Patient resting in the bed. No acute distress. On O2 3L/min via NC. AAO x 4. Denied of pain. Skin warm and dry to touch. IV intact to RFA, no redness, no swelling, no drainage. On NS at 50ml/hr, infusing well. Discussed the safety issue, use call light when needs help, and plan of care, verbally understanding. Safety measure maintained. Bed locked in low position, side rails up. Refused bed alarm, risk and benefit explained, verbally understanding. On isolation. Will continue to monitor.
[2020-03-31 07:50] VITALS: BP_SYST 112
[2020-03-31 08:47] LABS: ALBUMIN 2.3 g/dL (3.4-4.8); CALCIUM 8.3 mg/dL (8.4-11.0); CREATININE 0.57 mg/dL (0.55-1.30); POTASSIUM 3.5 mmol/L (3.5-5.1); TOTAL BILIRUBIN 0.3 mg/dL (0.0-1.0)
[2020-03-31] MEDS: CHOLECALCIFEROL (VITAMIN D3) 2,000 UNIT TABLET PO SCH (09:47)
[2020-03-31] MEDS: ASCORBIC ACID 500 MG TABLET PO SCH (09:47)
[2020-03-31] MEDS: ENOXAPARIN SODIUM 120 MG/0.8 ML SYRINGE SUBCUT SCH ×2 (09:48→21:48)
--- NOTE | 2020-03-31 09:48 | NUR ---
AM SCHEDULE GIVEN. PATIENT TOLERATED WELL.
--- NOTE | 2020-03-31 10:13 | NUR ---
SEEN AND EXAMINED BY STEVEN VELAZQUEZ.
[2020-03-31 12:00] VITALS: BP_SYST 115
[2020-03-31] MEDS: NACL 0.9% 1,000 ML IV SCH (12:40)
--- NOTE | 2020-03-31 12:43 | NUR ---
BB=524 Humulin R insulin 6 units given per sliding scale as ordered. Patient resting in the bed. No acute distress. Continue on O2 3L/min via NC. IV intact, IVF infusing well. Safety measure maintained. Call light within reached. Bed locked in low position, side rails up. Isolation maintained. Continue to monitor.
--- NOTE | 2020-03-31 14:05 | NUR ---
ROUND Patient resting in the bed. No acute distress. Continue on O2 3L/min via NC. IV intact, IVF infusing well. Safety measure maintained. Call light within reached. Isolation maintained. Continue to monitor.
--- NOTE | 2020-03-31 15:35 | NUR ---
SEEN AND EXAMINED BY ELISSA HARRY.
[2020-03-31 16:00] VITALS: BP_SYST 116
--- NOTE | 2020-03-31 17:25 | NUR ---
ROUND Patient resting in the bed and watching TV. No acute distress. Continue on O2 3L/min via NC. IV intact, IVF infusing well. Safety measure maintained. Call light within reached. Isolation maintained. Continue to monitor.
--- NOTE | 2020-03-31 17:31 | NUR ---
Nutrition F/U RD reviewed pt's current EMR record including diet Hx, physician notes, nursing notes, pertinent labs/meds/procedures, care trends, and care activity. Admission Dx: COVID, pneumonia PMH: smoking, L-sided pneumonia per physician notes Pt also found w/ severe acidosis, possible DKA, hyponatremia per physician notes SARS-CoV-2 Ag (Rapid) Positive 03/25 Current Diet Order/Nutrition Support: CCHO, 100 gm protein x5 days Subjective Info: RD bedside visit deferred d/t isolation precautions and PPE conservation efforts. RD called pt's room; no response. Per EMR review, pt has been tolerating diet well, average of 80% PO intakes. Wt has been stable since admission (257#/117 kg). Current diet remains adequate/appropriate. Pertinent Medications: SSI, remdesivir IV, zinc sulfate, VIT D3, VIT C, decadron Pertinent Labs: Na 136 WNL (improved), BG 272 H, POC BG 344 H, ALB 2.3 L Skin Integrity Comment: Milton scale: 20; no skin breakdown per EMR review Current % PO 80% average x11 meals Estimated Energy Expenditure (kcals/day) 9912-5822 kcal/day (MSJ x 1.2-1.5 CBW for acute state) Estimated Protein Required (g/day) 94-117 gm/day (1.2-1.5 gm/kg Adj IBW for acute state) Estimated Fluid Required (l/day) 2.4-3 L/day (1 ml/kcal/day for maintenance) Problem/Etiology/Signs/Symptoms Increased protein needs related to metabolic demands as evidenced by estimated nutritional requirements for acute state. *met Altered nutrition-related labs related to endocrine dysfunction as evidenced by elevated BG and POC BG lab values. *ongoing Expected Outcomes/Goals - Monitor appetite and PO intakes w/ goal of pt meeting 80% of estimated nutritional needs, labs trending WNL, normal GI function, and skin integrity/wt maintenance Dietitian Recommendations * Recommend continuing CCHO, 100 gm protein diet Follow Up Mod Risk: F/U in 3-5 days
--- NOTE | 2020-03-31 17:35 | NUR ---
Dietitian Recommendations * Recommend continuing CCHO, 100 gm protein diet LP, RD Please refer to Nutrition F/U for details.
--- NOTE | 2020-03-31 18:50 | NUR ---
CLOSING NOTE Patient resting in the bed. No acute distress. Continue on O2 3L/min via NC. Skin warm and dry to touch. IV intact to RFA, no redness, no swelling, no drainage. On NS at 50ml/hr, infusing well. All needs met. Safety measure maintained. Bed locked in low position, side rails up. Refused bed alarm, risk and benefit explained, verbally understanding. On isolation. Will endorse to night nurse.
--- NOTE | 2020-03-31 19:25 | NUR ---
OPENING NOTES Patient is resting, no signs of acute respiratory distress noted, 3L NC. Commode at bedside. IV site intact, dressings c/d/i, IVF running. Call light within reach, bed alarm on, bed at lowest position. Isolation precautions to be kept. Will continue to monitor.
[2020-03-31 20:00] VITALS: BP_SYST 113; BP_SYST 127
--- NOTE | 2020-03-31 21:35 | NUR ---
Patient is resting, ice water pitcher provided. Gene crackers provided as well. Will continue to monitor.
[2020-03-31] MEDS: INSULIN GLARGINE 100 UNITS/ML 10 ML VIAL SUBCUT SCH (21:48)
[2020-04-01] VITALS (7 sets, daily range): BP systolic 105–125
--- NOTE | 2020-04-01 00:10 | NUR ---
Patient provided ice water and urinal emptied. Patient resting. No signs of distress noted. Will continue to monitor.
[2020-04-01] MEDS: DEXAMETHASONE SOD PHOSPHATE 10 MG/ML VIAL IVP SCH (01:00)
[2020-04-01] MEDS: INSULIN REGULAR, HUMAN 100 UNITS/ML, 10 ML VIAL (humuLIN R) SUBCUT PRN ×3 (06:57→21:16)
--- NOTE | 2020-04-01 07:25 | NUR ---
CLOSING NOTES Patient is resting, no signs of acute respiratory distress noted, 3L NC. Patient was on 4L of NC for a few hours and tolerated well, and is back to 3L. Commode at bedside. IV site intact, dressings c/d/i, IVF running. Call light within reach, bed alarm on, bed at lowest position. Isolation precautions kept throughout shift. Will endorse care to oncoming shift.
[2020-04-01 07:41] LABS: BASOPHILS # (AUTO) 0.1 K/uL (0.0-0.2); BASOPHILS % (AUTO) 1.1 % (0.0-2.0); EOSINOPHILS # (AUTO) 0.1 K/uL (0.0-0.4); EOSINOPHILS % (AUTO) 1.6 % (0.0-4.0); HEMATOCRIT 40.3 % (36-54); HEMOGLOBIN 13.1 g/dL (14.0-18.0); LYMPHOCYTES # (AUTO) 0.5 K/uL (1.0-5.5); LYMPHOCYTES % (AUTO) 10.3 % (20.5-51.5); MEAN CORPUSCULAR HEMOGLOBIN 25 pg (27-31); MEAN CORPUSCULAR HGB CONC 32 % (32-36); MEAN CORPUSCULAR VOLUME 76 fL (79.0-98.0); MONOCYTES # (AUTO) 0.4 K/uL (0.0-1.0); MONOCYTES % (AUTO) 8.4 % (1.7-9.3); NEUTROPHILS # (AUTO) 4.1 K/uL (1.8-7.7); NEUTROPHILS % (AUTO) 78.6 % (40.0-70.0); PLATELET COUNT (AUTO) 264 K/uL (130-430); RED BLOOD CELL COUNT(AUTO) 5.34 MIL/uL (4.2-6.2); RED CELL DISTRIBUTION WIDTH 14.8 % (9.0-15.0); WHITE BLOOD COUNT (AUTO) 5.2 K/uL (4.8-10.8)
[2020-04-01] MEDS: ASCORBIC ACID 500 MG TABLET PO SCH (08:26)
[2020-04-01] MEDS: CHOLECALCIFEROL (VITAMIN D3) 2,000 UNIT TABLET PO SCH (08:27)
[2020-04-01] MEDS: ENOXAPARIN SODIUM 120 MG/0.8 ML SYRINGE SUBCUT SCH ×2 (08:28→21:15)
--- NOTE | 2020-04-01 08:29 | NUR ---
Routine Patient resting comfortably in bed with no respiratory distress noted and no complaint of any pain. Patient stable at this time.
[2020-04-01] MEDS: NACL 0.9% 1,000 ML IV SCH (09:45)
--- NOTE | 2020-04-01 11:30 | NUR ---
Routine Patient ambulated to bathroom and back to bed. Checked blood sugar: 275 mg/dl - will cover per sliding scale. Patient stable at this time.
--- NOTE | 2020-04-01 12:27 | NUR ---
Routine Covered per sliding scale. Patient sitting in bed, ready to eat lunch. Patient stable.
--- NOTE | 2020-04-01 15:00 | NUR ---
Routine Patient resting quietly in bed with no respiratory distress or complaint of any pain. Patient stable at this time.
--- NOTE | 2020-04-01 16:35 | NUR ---
Routine Patient resting quietly in bed with no compliant of any pain. Checked blood sugar: 275 mg/dl - will cover per sliding scale. Patient stable.
--- NOTE | 2020-04-01 18:30 | NUR ---
Routine Patient resting comfortably in bed with no complaint of pain at this time. Patient stable throughout shift.
--- NOTE | 2020-04-01 19:15 | NUR ---
change of shift.pt.presents isolation status;droplet;covid19+.pt.presents.o2-therapy via nasal cannulae;pt.presents iv access;iv fluids infusing.pt.utilizing bsc/urinals x2 w/in access of the pt.o2-sat%=94%,pt.capable to reposition self.ambulate.general status stable.respiratory status stable;unlabored.call light/telephone placed w/in access of the pt.
--- NOTE | 2020-04-01 20:00 | NUR ---
pt.assessed.v/s assessed values w/in normal limits.no c/o pain,nausea.i have apprised the pt.that snacks/beverages are available w/in the shift.pt.requested several items food/juice.i have provided the food items/juice.iv access intact;patent iv fluids infusing. 02-sat%=93%.i have attended to the urinal;measured/cleaned placed w/in access of the pt.bsc inspected clean.pt.capable to reposition self.call light/telephone w/in access of the pt.
--- NOTE | 2020-04-01 20:30 | NUR ---
i have assessed the blood glucose value;286mg/dl.i have apprised the pt.of the value and the necessity for insulin administration.
--- NOTE | 2020-04-01 21:00 | NUR ---
2100p medications administered:lovenox;120mg,lantus;20-units,insulin:regular;6-units per the sliding scale.all medications required co-sign.fermin co-signed per medication protocol.
[2020-04-01] MEDS: INSULIN GLARGINE 100 UNITS/ML 10 ML VIAL SUBCUT SCH (21:15)
--- NOTE | 2020-04-01 22:00 | NUR ---
pt.assessed.pt.presents quiescent affect;calm,resting,viewing tv programming via tablet.no c/o pain,nausea.no requests posited @this hour urinals inspected/empty/clean w/in acces of the pt.pt.capable to reposition self.iv access intact;patent iv fluids infusing.general status stable.respiratory status stable:02-sat%=94%.call light/telephone w/in access of the pt.
[2020-04-02] VITALS: BP_SYST 106
--- NOTE | 2020-04-02 | NUR ---
pt.assessed.v/s assessed values w/in normal limits.o2-sat%=94%.no c/o pain,nausea.no requests posited@thid hour.i have attended to the urinal:measured/cleaned placed w/in access of the pt.i have administered decadron;6mg ivp.pt.capable to reposition self.general status stable.respiratory status stable;unlabored.call light/telephone w/in access of the pt.
[2020-04-02] MEDS: DEXAMETHASONE SOD PHOSPHATE 10 MG/ML VIAL IVP SCH ×2 (00:06→23:57)
[2020-04-02] MEDS: NACL 0.9% 1,000 ML IV SCH ×2 (01:14→06:24)
--- NOTE | 2020-04-02 02:00 | NUR ---
pt.assessed.pt.presents quiescent affect;calm,somnolent.iv access intact;patent iv fluids infusing.i have attended to the urinals x2;measured/cleaned placed w/in access of the pt.pt.capable to reposition self.02-sat%=93%.no c/o pain,nausea.call light/telephone w/in access of the pt.
--- NOTE | 2020-04-02 04:00 | NUR ---
pt.assessed.pt.presents quiescent affect;calm,somnolent.v/s assessed values w/in normal limits.no c/o pain,nausea. iv access intact;patent iv fluids infusing.i have attended to the urinals x2.measured/cleaned.placed w/in access of the pt. 02-sat%=93%.general status stable.respiratory status stable;unlabored.pt.capable to reposition self.call light/telephone w/in reach of the pt.
--- NOTE | 2020-04-02 06:30 | NUR ---
pt.assessed.v/s assessed values w/in normal limits.no c/o pain,nausea.pt.requested fresh water.i have provided the water. blood glucose assessed value:353mg/dl.i have apprised the pt.of the blood glucose value.i have administered insulin;regular: 10-units per the sliding scale parameters.i have attended to the urinals x2/bsc measured/cleaned placed w/in access of the pt.i have changed the iv fluids.general status stable.respiratory status stable;unlabored.02-sat%=94%.call light/telephone w/in access of the pt.
[2020-04-02] MEDS: INSULIN REGULAR, HUMAN 100 UNITS/ML, 10 ML VIAL (humuLIN R) SUBCUT PRN ×4 (06:39→21:00)
[2020-04-02 08:00] VITALS: BP_SYST 134
--- NOTE | 2020-04-02 08:00 | NUR ---
INITIAL NOTE PT AWAKE, RESTING IN BED. PT DENIES ANY SOB OR DISCOMFORT. PT REMAINS ON 2L NC, SATING AT 95%. VSS. IVF INFUSING WELL. EMPTIED 300CC, CLEAR AND YELLOW. CALL LIGHT WITHIN REACH, BED IN LOW AND LOCKED POSITION. PT EDUCATED ON SAFETY AND USE OF BED ALARM, PT VERBALIZED UNDERSTANDING, PT REFUSING BED ALARM AT THIS TIME. PT COVID POSITIVE, ISOLATION PRECAUTIONS IN PLACE.
[2020-04-02] MEDS: CHOLECALCIFEROL (VITAMIN D3) 2,000 UNIT TABLET PO SCH (08:11)
[2020-04-02] MEDS: ASCORBIC ACID 500 MG TABLET PO SCH (08:11)
[2020-04-02] MEDS: ENOXAPARIN SODIUM 120 MG/0.8 ML SYRINGE SUBCUT SCH ×2 (08:26→21:00)
--- NOTE | 2020-04-02 11:30 | NUR ---
BSG 309 INSULIN COVERAGE ADMINISTERED AT THIS TIME. EMPTIED BSC OF URINE. VSS. MANUEL BORDEN SAW PT, POSSIBLE DCP HOME WITH OXYGEN. ALL NEEDS MET AT THIS TIME WILL CONTINUE TO MONITOR.
[2020-04-02 12:00] VITALS: BP_SYST 128
--- NOTE | 2020-04-02 13:30 | NUR ---
INCENTIVE SPIROMETER EDUCATED PT ON USE AND PURPOSE OF IS, PT VERBALIZED UNDERSTANDING AND DEMONSTRATED TEACH BACK. PT REACHED 2000CC X2, MODERATE DRY COUGH NOTED AFTERWARDS. PT TOLERATED WELL. WILL CONTINUE TO REINFORCE EDUCATION.
[2020-04-02 16:00] VITALS: BP_SYST 122
--- NOTE | 2020-04-02 16:30 | NUR ---
RN ROUNDS EMPTIED OUT BSC. DISCONNECTED PT FROM IV. PT AMBULATED TO RESTROOM WITH STEADY GAIT ON ROOM AIR. NO S/S OF SOB OR DYSPNEA. PT HAD BM. PT AMBULATED BACK TO BED. NO S/S OF SOB. PT SATING AT 92% ON ROOM AIR. PROVIDED PT WITH NEW LINEN AND NEW GOWN. WILL CONTINUE TO MONITOR.
--- NOTE | 2020-04-02 17:25 | NUR ---
BSG 253 INSULIN ADMINISTERED PER SLIDING SCALE. PT DENIES ANY SOB OR DISCOMFORT. WILL CONTINUE TO MONITOR.
--- NOTE | 2020-04-02 18:32 | NUR ---
CLOSING NOTE CHARGE NURSE HOOD SPOKE WITH DR. KAMARA IN REGARDS TO PLAN OF DC. PT POSSIBLE DC TOMORROW WITH HOME OXYGEN. PT DENIES ANY SOB, PT REMAINS ON ROOM AIR AT THIS TIME, SATING AT 91%. IVF INFUSING WELL. CALL LIGHT WITHIN REACH, BED IN LOW AND LOCKED POSITION. WILL CONTINUE TO MONITOR UNTIL PT CARE IS ENDORSED TO ASSEMBLER INSULATOR RN. WILL ENDORSE OXYGEN TANK AT NURSE STATION TO BE PLACED INSIDE PT ROOM AND TO BE TAKEN HOME WITH PT UPON DC.
[2020-04-02 20:00] VITALS: BP_SYST 108
--- NOTE | 2020-04-02 20:30 | NUR ---
OPENING NOTE patient is resting in bed, alert and oriented, educated contract paralegal light system and plan of care, patient verbalized understanding. patient tolerating well on 2L nasal cannula, no signs of distress at this time. IV patent with IVF running and tolerating well. patient is able to use urinal independently and ambulates steady. no other needs addressed at this time, fall/safety and isolation precautions in place.
[2020-04-02] MEDS: INSULIN GLARGINE 100 UNITS/ML 10 ML VIAL SUBCUT SCH (20:59)
--- NOTE | 2020-04-02 23:50 | NUR ---
ROUNDS patient resting in bed, watching tv. tolerating well on 2L nasal cannula, no signs of distress at this time. gave him water and tyler crackers. no other needs addressed at this time, fall/safety and isolation precautions in place.
[2020-04-03] VITALS: BP_SYST 125
--- NOTE | 2020-04-03 01:50 | NUR ---
PATIENT RESTING IN BED eyes closed breathing easy and nonlabored, no signs of distress at this time, no needs addressed at this time. fall/safety and isolation precautions in place.
--- NOTE | 2020-04-03 03:24 | NUR ---
PATIENT IS SINUS BRADYCARDIA patient's heart rate went to 45 while he was resting, patient was able to reposition himself and nasal cannula was secured. patient stated he will try to stay awake to bring it back up. patient's heart rate went to 76. will continue to monitor. no signs of distress at this time. no other needs addressed at this time, fall/safety and isolation precautions in place.
[2020-04-03 05:30] VITALS: BP_SYST 115
[2020-04-03] MEDS: INSULIN REGULAR, HUMAN 100 UNITS/ML, 10 ML VIAL (humuLIN R) SUBCUT PRN ×2 (06:10→12:54)
--- NOTE | 2020-04-03 06:50 | NUR ---
CLOSING NOTE patient is resting in bed, patient tolerating well on 2L nasal cannula, no signs of distress at this time. IV patent with IVF running and tolerating well. patient is able to use urinal independently and ambulates steady. no other needs addressed at this time, fall/safety and isolation precautions in place. will endorse care to day shift nurse. patient's oxygen tank, that he will take home, is at the nurses' station with his name label on it. Patient is aware that the oxygen tank is at the nurses' station.
[2020-04-03 08:00] VITALS: BP_SYST 133
--- NOTE | 2020-04-03 08:00 | NUR ---
INITIAL NOTE PT AWAKE, RESTING IN BED. PT REMAINS ON 2L NC, SATING AT 95%, DENIES ANY SOB OR COUGH AT THIS TIME. IVF INFUSING TO RIGHT FOREARM. MORNING MEDICATIONS ADMINISTERED. EDUCATED PT ON OXYGEN TANK THAT HE WILL BE DC WITH, PT VERBALIZED UNDERSTANDING AND DEMONSTRATED TEACH BACK. WATER AND BREAKFAST AT BEDSIDE. EMPTIED OUT URINAL, 300CC, CLEAR AND YELLOW. ALL NEEDS MET AT THIS TIME. CALL LIGHT WITHIN REACH, BED IN LOW AND LOCKED POSITION. ISOLATION PRECAUTIONS IN PLACE. POSSIBLE DC TODAY.
[2020-04-03] MEDS: CHOLECALCIFEROL (VITAMIN D3) 2,000 UNIT TABLET PO SCH (08:06)
[2020-04-03] MEDS: ASCORBIC ACID 500 MG TABLET PO SCH (08:06)
[2020-04-03] MEDS: ENOXAPARIN SODIUM 120 MG/0.8 ML SYRINGE SUBCUT SCH (08:07)
[2020-04-03 08:31] VITALS: BP_SYST 127
--- NOTE | 2020-04-03 11:30 | NUR ---
RN ROUNDS/DR. KAMARA SPOKE WITH MD AT NURSES STATION, INFORMED MD THAT PT IS DIABETIC AND HAS NOTHING AT HOME TO CHECK BSG. MD TO PUT IN ORDER FOR DM ACUU METER, LANCETS, AND STRIPS. PER MD PT TO BE DISCHARGED IF CLEARED BY MANUEL BORDEN. BSG 264, INSULIN ADMINISTERED PER SLIDING SCALE. PT AMBULATED TO RESTROOM WITH STEADY GAIT. PT HAD BM. PT IS ON ROOM AIR TOLERATING WELL, DENIES SOB, OR DIZZINESS, SATING AT 94%. WILL CONTINUE TO MONITOR.
[2020-04-03 12:00] VITALS: BP_SYST 127
--- NOTE | 2020-04-03 12:00 | NUR ---
DR. DRAGAN BORDEN MAKING ROUNDS, TO CLEAR PT FOR DISCHARGE WITH PRESCRIPTION ELIQUIS 2.5MG. WILL CARRY OUT.
[2020-04-03] MEDS ORDERED: METF1000 PO (12:50)
[2020-04-03] MEDS ORDERED: LISI10TA5 PO (12:52)
[2020-04-03] MEDS ORDERED: SEMA3TAB PO (12:52)
--- NOTE | 2020-04-03 12:55 | NUR ---
Roving Hand: follow up ENGRAVER LETTERING received Dr. mcbride to pt. ENGRAVER LETTERING called and spoke to HCP Kajal Herrera, [place]. [phone] and stated she fax'd orders over to her. ENGRAVER LETTERING will remain available as needed.
--- NOTE | 2020-04-03 13:06 | NUR ---
DC Plan: Home oxygen was arranged and delivered yesterday by [facility] Patient enrolled with [facility] Covid Monitoring Program yesterday HH PT will be arranged and patient will be called by home health agency tomorrow Dr. Rodriguez informed to provide patient prescription for glucometer, strips, and lancets [employer] Developer [phone]
--- NOTE | 2020-04-03 14:13 | NUR ---
YO W/ OSCAR FROM [employer] PROVIDED HER WITH PTS PHARMACY [facility].
[2020-04-03] MEDS ORDERED: INSU100V9 SQ (14:16)
[2020-04-03] MEDS ORDERED: APIX2.5T PO (14:16)
[2020-04-03] MEDS ORDERED: ALBMDI INH (14:16)
[2020-04-03] MEDS ORDERED: DEC4 PO (14:17)
[2020-04-03 16:00] VITALS: BP_SYST 127
--- NOTE | 2020-04-03 16:17 | NUR ---
DC INSTRUCTIONS GIVEN TO PER PHONE DUE TO PT IN ISOLATION, DC INSTRUCTIONS GIVEN TO VIA PHONE. PT GOING HOME WITH PRESCRIPTIONS AND OXYGEN TANK 2L PRESCRIBED. GRICEL, , VERBALIZED UNDERSTANDING. WILL BENEFIT AUTHORIZER PT IN 30MINUTES.
--- NOTE | 2020-04-03 16:45 | NUR ---
DISCHARGE NOTE ALL BELONGINGS WITH PT. IV CATHETER REMOVED, CATHETER INTACT, SCANT BLEEDING, HELD PRESSURE FOR 5MINUTES. PT ON ROOM AIR AT THIS TIME TOLERATING WELL. PT ESCORTED TO [facility] PARKING LOT VIA WHEEL CHAIR WITH OXYGEN TANK, PT EDUCATED ON 2L PRESCRIPTION PRN FOR O2. DISCHARGE PACKET AND INSTRUCTIONS GIVEN TO , GRICEL MOSELEY. PT RECEIVED PRESCRIPTION FOR ACCU METER, LANCET, AND STRIPS FROM PHARMACY.
--- NOTE | 2020-04-05 14:44 | NUR ---
Discharge follow up call: RETIREMENT SPECIALIST phoned pt @ [phone]. Per pt, he is doing "okay" and he does not have any questions/concerns about the discharge instructions. Pt has an appointment with his PCP on 04/07 and was able to fill his Eliquis prescription. Pt also had his oxygen delivered. ARNULFO [facility] note stated home health for PT; confirmed with Merissa ARREDONDO and per Merissa no PT needed because pt is independent. RETIREMENT SPECIALIST provided patient with information. No further SS call needed at this time.
== END 2020-04-03 16:45 | disposition home health service (06) | DRG 871 ==
LOC: SED 20:08 → STU 23:25 → SIC 23:27 → STU 03-29 16:25
PROVIDERS: ADMIT Internal Medicine Hospice and Palliative Medicine; ATTEND Internal Medicine Hospice and Palliative Medicine
PROC: XW13325 Transfusion of Convalescent Plasma (Nonautologous) into Peripheral Vein, Percutaneous Approach, New Technology Group 5 (ICD-10-PCS; 2020-03-26)
PROC: XW033E5 Introduction of Remdesivir Anti-infective into Peripheral Vein, Percutaneous Approach, New Technology Group 5 (ICD-10-PCS; principal; 2020-03-27)
DX: A41.9 Sepsis, unspecified organism (principal); U07.1 COVID-19; J12.89 Other viral pneumonia; J96.21 Acute and chronic respiratory failure with hypoxia; E11.10 Type 2 diabetes mellitus with ketoacidosis without coma; E87.2 Acidosis; E87.1 Hypo-osmolality and hyponatremia; Z68.41 Body mass index [BMI] 40.0-44.9, adult; Z20.828 Contact with and (suspected) exposure to other viral communicable diseases; E66.01 Morbid (severe) obesity due to excess calories; F17.200 Nicotine dependence, unspecified, uncomplicated; Z87.01 Personal history of pneumonia (recurrent)
CPT/HCPCS: 36415; 36600; 71275; 80048; 80053; 80076; 82009-TC; 82728; 82803-TC; 82962; 83036; 83605; 83735-TC; 83880; 84100-TC; 84484; 85025; 85379; 86140; 86886; 86900; 86901; 87040-TC; 87081; 93005; 94010; 94640; 94760; 96361; 96365; 96375; 99291; G0378; J0456; J0696; J1100; J1650; J1815; J1885; J3480; J7030; J7050; J7060; P9017; Q9967